=== PATIENT | female | born 1985 | race Caucasian/White ===

== ENCOUNTER 2018-07-16 03:50 | Emergency (ER) | payer BC, SELFPAY ==
[2018-07-16] MEDS ORDERED: Acetaminophen 500 MG TAB ONE (04:10)
[2018-07-16] MEDS ORDERED: Ibuprofen 800 MG TAB ONE (04:11)
== END 2018-07-16 04:27 | disposition home or self-care (01) ==
LOC: MADERS 03:50
DX: S70.11XA Contusion of right thigh, initial encounter (principal); V49.9XXA Car occupant (driver) (passenger) injured in unspecified traffic accident, initial encounter
CPT/HCPCS: 99283; G0390